=== PATIENT | male | born 1960 | race Caucasian/White ===

== ENCOUNTER 2020-10-20 11:31 | Day surgery (SDC) | payer OTHER ==
[~2020-10-20] VITALS: Ht 175.3 cm; Wt 100.9 kg
[~2020-10-20 11:31] MED LIST: ASCO500 PO; Acidophilus1 EAC1 PO; COMBIVENT RESPIM4 G1 INH; HYDACE25S PR; NITR.4SL SL
[2020-10-20] MEDS ORDERED: FISH OIL-VIT D1 EACH PO (12:34)
[2020-10-20] MEDS ORDERED: ACYC800 (12:34)
[2020-10-20] MEDS ORDERED: ASPIR 8181 M1 PO (12:35)
[2020-10-20] MEDS ORDERED: OMEP20ER PO (12:35)
[2020-10-20] MEDS ORDERED: AMLO5 PO (12:35)
[2020-10-20] MEDS ORDERED: PRAV20 PO (12:35)
[2020-10-20] MEDS ORDERED: Prinivil10 MG PO (12:36)
[2020-10-20] MEDS ORDERED: Norco 10-325 T1 EACH PO (12:36)
== END 2020-10-20 13:42 | disposition home or self-care (01) ==
LOC: ORSCSDS 11:31
PROVIDERS: Internal Medicine Gastroenterology
PROC: 0DBN8ZX Excision of Sigmoid Colon, Via Natural or Artificial Opening Endoscopic, Diagnostic (ICD-10-PCS; principal; 2020-10-20 13:00)
DX: Z12.11 Encounter for screening for malignant neoplasm of colon (principal); K63.5 Polyp of colon; K57.30 Diverticulosis of large intestine without perforation or abscess without bleeding; K64.8 Other hemorrhoids; Z86.010 Personal history of colon polyps; J44.9 Chronic obstructive pulmonary disease, unspecified; E78.5 Hyperlipidemia, unspecified; I10 Essential (primary) hypertension; Z87.891 Personal history of nicotine dependence
CPT/HCPCS: 88305; J2250; J2704; J7120